=== PATIENT | male | born 1985 | race American Indian/Alaskan Native ===

== ENCOUNTER 2017-04-02 08:36 | Emergency (ER) | payer SELFPAY ==
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
--- NOTE | 2017-04-02 11:45 | XRay Report ---
Right leg 2 views: History: Right lower leg pain. Findings: No fracture, periosteal reaction or lytic lesion. No soft tissue calcification. Impression: Essentially negative right tibia-fibula.
[2017-04-02 12:10] VITALS: BP 99/60
== END 2017-04-02 12:10 | disposition home or self-care (01) ==
LOC: ED 08:36
DX: S80.11XA Contusion of right lower leg, initial encounter (principal); J45.909 Unspecified asthma, uncomplicated; F12.10 Cannabis abuse, uncomplicated; F17.200 Nicotine dependence, unspecified, uncomplicated; X58.XXXA Exposure to other specified factors, initial encounter; Y93.9 Activity, unspecified; Y99.9 Unspecified external cause status; Y92.009 Unspecified place in unspecified non-institutional (private) residence as the place of occurrence of the external cause
CPT/HCPCS: 99282

== ENCOUNTER 2017-05-14 19:12 | Emergency (ER) | payer OTHER ==
[2017-05-14 19:24] VITALS: BP 104/40
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
[2017-05-14] MEDS: ULTRAM PO ONE (20:20)
== END 2017-05-14 20:40 | disposition home or self-care (01) ==
LOC: ED 19:12
DX: S76.012A Strain of muscle, fascia and tendon of left hip, initial encounter (principal); J45.909 Unspecified asthma, uncomplicated; F17.200 Nicotine dependence, unspecified, uncomplicated; F12.10 Cannabis abuse, uncomplicated; X50.0XXA Overexertion from strenuous movement or load, initial encounter; Y93.89 Activity, other specified; Y92.89 Other specified places as the place of occurrence of the external cause; Y99.0 Civilian activity done for income or pay
CPT/HCPCS: 99282

== ENCOUNTER 2017-08-11 09:22 | Emergency (ER) | payer OTHER ==
[2017-08-11] MEDS ORDERED: NORCO 5/325 PO ONE (13:39)
[2017-08-11] MEDS ORDERED: ZOFRAN ODT PO ONE (13:39)
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
[2017-08-11 15:18] VITALS: BP 118/72
== END 2017-08-11 15:18 | disposition home or self-care (01) ==
LOC: ED 09:22
DX: S09.90XA Unspecified injury of head, initial encounter (principal); M79.1 Myalgia; J45.909 Unspecified asthma, uncomplicated; F17.200 Nicotine dependence, unspecified, uncomplicated; V89.2XXA Person injured in unspecified motor-vehicle accident, traffic, initial encounter; Y93.89 Activity, other specified; Y92.89 Other specified places as the place of occurrence of the external cause; Y99.8 Other external cause status
CPT/HCPCS: 70450; 72125; 99284; Q0162

== ENCOUNTER 2019-01-20 17:04 | Emergency (ER) | payer SELFPAY ==
[2019-01-20 17:11] VITALS: BP 132/67
--- NOTE | 2019-01-20 17:21 | Emergency Department Report ---
Chief Complaint: Upper Respiratory Infection Stated Complaint: COLD - HPI History of Present Illness: 33 y/o male comes in for cold like symptoms times 2 days. No fever. .Admits to running nose and sneezing. - ROS Review of Systems: + cough + sneezing +running nose - fever - Exam Vital Signs: Vital Signs 01/20/19 17:10 Temperature 98.0 F Pulse Rate 50 L Respiratory 20 Rate Blood Pressure 132/67 O2 Sat by Pulse 99 Oximetry Physical Exam: A&O x 3 CTA bilateral, RRR NO edema Normal gait MSE screening note: Focused history and physical exam performed. Due to findings the following was ordered: Allergic rhinitis. Recommend zyrtec and mucinex. ED Disposition for MSE Disposition: Z MED SCREENING EXAM-LEFT Is pt being admited?: No Does the pt Need Aspirin: No Condition: Stable Additional Instructions: OTC Zyrtec 10mg daily and Mucinex as directed.
== END 2019-01-20 17:30 | disposition left against medical advice (07) ==
LOC: ED 17:04
DX: J00 Acute nasopharyngitis [common cold] (principal); Z53.21 Procedure and treatment not carried out due to patient leaving prior to being seen by health care provider

== ENCOUNTER 2019-05-31 20:32 | Emergency (ER) | payer OTHER ==
[2019-05-31 20:45] VITALS: BP 120/62
[2019-05-31] MEDS ORDERED: IBUPROFEN 800 MG TAB PO ONE (23:48)
[2019-05-31] MEDS ORDERED: AMOXICILLIN/K CLAV 875/125MG TAB PO ONE (23:48)
--- NOTE | 2019-05-31 23:53 | Emergency Department Report ---
ED ENT HPI - General Chief complaint: Earache Stated complaint: LT EAR PAIN Time Seen by Provider: 05/31/19 23:29 Source: patient Mode of arrival: Ambulatory Limitations: No Limitations - History of Present Illness Initial comments: pt is a 33 y/o aam who presents for left ear pain 5/10 aching x 3 days. There is no discharge , no fever , no chills, n/v, no dizziness, no tinnitis. symptoms are exacerbated by movement. MD complaint: ear pain Onset/Timin -: days(s) Location: L ear Severity: moderate Severity scale (0 -10): 5 Quality: aching Consistency: constant Improves with: none Worsens with: movement Associated Symptoms: denies: fever, sore throat, tinnitus, discharge from ear, rhinorrhea - Related Data Previous Rx's Medication Instructions Recorded Last Taken Type Acetaminophen/Codeine [Tylenol #3] 1 tab PO Q6H PRN #20 tab 02/27/15 Unknown Rx Ibuprofen [Motrin 600 MG tab] 600 mg PO Q8H PRN #50 tablet 02/27/15 Unknown Rx Sulfamethoxazole/Trimethoprim 1 each PO BID #20 tablet 02/27/15 Unknown Rx [Bactrim DS TAB] Ibuprofen [Motrin] 600 mg PO Q8H PRN #60 tablet 04/12/15 Unknown Rx Sulfamethoxazole/Trimethoprim 1 each PO BID #14 tablet 04/12/15 Unknown Rx [Bactrim DS TAB] traMADol [Ultram] 50 mg PO Q6HR PRN #14 tablet 04/12/15 Unknown Rx Cyclobenzaprine [Flexeril] 10 mg PO TID PRN #30 tablet 05/14/17 Unknown Rx Naproxen [Naprosyn] 500 mg PO BID PRN #30 tablet 05/14/17 Unknown Rx Cyclobenzaprine [Flexeril] 10 mg PO TID PRN #15 tablet 08/11/17 Unknown Rx Naproxen 500 mg PO BID PRN #30 tablet 08/11/17 Unknown Rx Amoxicillin/Potassium Clav 1 each PO BID 7 Days #14 tablet 05/31/19 Unknown Rx [Augmentin 875-125 Tablet] Ibuprofen [Motrin 800 MG tab] 800 mg PO Q8HR PRN #30 tablet 05/31/19 Unknown Rx Allergies Allergy/AdvReac Type Severity Reaction Status Date / Time No Known Allergies Allergy Verified 01/20/19 17:11 ED Dental HPI - General Chief complaint: Earache Stated complaint: LT EAR PAIN Time Seen by Provider: 05/31/19 23:29 Source: patient Mode of arrival: Ambulatory Limitations: No Limitations - Related Data Previous Rx's Medication Instructions Recorded Last Taken Type Acetaminophen/Codeine [Tylenol #3] 1 tab PO Q6H PRN #20 tab 02/27/15 Unknown Rx Ibuprofen [Motrin 600 MG tab] 600 mg PO Q8H PRN #50 tablet 02/27/15 Unknown Rx Sulfamethoxazole/Trimethoprim 1 each PO BID #20 tablet 02/27/15 Unknown Rx [Bactrim DS TAB] Ibuprofen [Motrin] 600 mg PO Q8H PRN #60 tablet 04/12/15 Unknown Rx Sulfamethoxazole/Trimethoprim 1 each PO BID #14 tablet 04/12/15 Unknown Rx [Bactrim DS TAB] traMADol [Ultram] 50 mg PO Q6HR PRN #14 tablet 04/12/15 Unknown Rx Cyclobenzaprine [Flexeril] 10 mg PO TID PRN #30 tablet 05/14/17 Unknown Rx Naproxen [Naprosyn] 500 mg PO BID PRN #30 tablet 05/14/17 Unknown Rx Cyclobenzaprine [Flexeril] 10 mg PO TID PRN #15 tablet 08/11/17 Unknown Rx Naproxen 500 mg PO BID PRN #30 tablet 08/11/17 Unknown Rx Amoxicillin/Potassium Clav 1 each PO BID 7 Days #14 tablet 05/31/19 Unknown Rx [Augmentin 875-125 Tablet] Ibuprofen [Motrin 800 MG tab] 800 mg PO Q8HR PRN #30 tablet 05/31/19 Unknown Rx Allergies Allergy/AdvReac Type Severity Reaction Status Date / Time No Known Allergies Allergy Verified 01/20/19 17:11 ED Review of Systems ROS: Stated complaint: LT EAR PAIN Other details as noted in HPI Constitutional: denies: chills, fever Eyes: denies: eye pain, eye discharge, vision change ENT: ear pain. denies: throat pain Respiratory: denies: cough, shortness of breath, wheezing Cardiovascular: denies: chest pain, palpitations Endocrine: no symptoms reported Gastrointestinal: denies: abdominal pain, nausea, diarrhea Genitourinary: denies: urgency, dysuria Musculoskeletal: denies: back pain, joint swelling, arthralgia Skin: denies: rash, lesions Neurological: denies: headache, weakness, paresthesias Psychiatric: denies: anxiety, depression Hematological/Lymphatic: denies: easy bleeding, easy bruising ED Past Medical Hx - Past Medical History Hx Asthma: Yes Additional medical history: enlarge heart - Surgical History Additional Surgical History: denies - Social History Smoking Status: Never Smoker - Medications Home Medications: Home Medications Medication Instructions Recorded Confirmed Last Taken Type Acetaminophen/Codeine [Tylenol #3] 1 tab PO Q6H PRN #20 tab 02/27/15 Unknown Rx Ibuprofen [Motrin 600 MG tab] 600 mg PO Q8H PRN #50 tablet 02/27/15 Unknown Rx Sulfamethoxazole/Trimethoprim 1 each PO BID #20 tablet 02/27/15 Unknown Rx [Bactrim DS TAB] Ibuprofen [Motrin] 600 mg PO Q8H PRN #60 tablet 04/12/15 Unknown Rx Sulfamethoxazole/Trimethoprim 1 each PO BID #14 tablet 04/12/15 Unknown Rx [Bactrim DS TAB] traMADol [Ultram] 50 mg PO Q6HR PRN #14 tablet 04/12/15 Unknown Rx Cyclobenzaprine [Flexeril] 10 mg PO TID PRN #30 tablet 05/14/17 Unknown Rx Naproxen [Naprosyn] 500 mg PO BID PRN #30 tablet 05/14/17 Unknown Rx Cyclobenzaprine [Flexeril] 10 mg PO TID PRN #15 tablet 08/11/17 Unknown Rx Naproxen 500 mg PO BID PRN #30 tablet 08/11/17 Unknown Rx Amoxicillin/Potassium Clav 1 each PO BID 7 Days #14 tablet 05/31/19 Unknown Rx [Augmentin 875-125 Tablet] Ibuprofen [Motrin 800 MG tab] 800 mg PO Q8HR PRN #30 tablet 05/31/19 Unknown Rx ED Physical Exam - General Limitations: No Limitations General appearance: alert, in no apparent distress - Head Head exam: Present: atraumatic, normocephalic - Eye Eye exam: Present: normal appearance, PERRL, EOMI Pupils: Present: normal accommodation - ENT ENT exam: Present: mucous membranes moist, normal external ear exam - Expanded ENT Exam Expanded Ear exam: Present: normal external inspection TM/Canal exam: Erythema: Left TM, Effusion: Left TM, Canal Tenderness: Left TM Throat exam: Positive: other (uvula midline no swelling no exudate no lesions no stridor ). Negative: tonsillar erythema, tonsillomegaly, tonsillar exudate, R peritonsillar mass, L peritonsillar mass - Neck Neck exam: Present: normal inspection, full ROM. Absent: tenderness, meningismus, lymphadenopathy, thyromegaly - Respiratory Respiratory exam: Present: normal lung sounds bilaterally. Absent: respiratory distress, wheezes, stridor, chest wall tenderness - Cardiovascular Cardiovascular Exam: Present: regular rate, normal rhythm, normal heart sounds. Absent: systolic murmur, diastolic murmur, rubs, gallop - GI/Abdominal GI/Abdominal exam: Present: soft, normal bowel sounds. Absent: distended, tenderness, bruit, hernia - Rectal Rectal exam: Present: deferred - Extremities Exam Extremities exam: Present: normal inspection, full ROM. Absent: tenderness - Back Exam Back exam: Present: normal inspection, full ROM. Absent: tenderness - Neurological Exam Neurological exam: Present: alert, oriented X3, CN II-XII intact, normal gait - Psychiatric Psychiatric exam: Present: normal affect, normal mood - Skin Skin exam: Present: warm, dry, intact, normal color. Absent: rash ED Course Vital Signs 05/31/19 20:44 Temperature 98.0 F Pulse Rate 69 Respiratory 18 Rate Blood Pressure 120/62 O2 Sat by Pulse 96 Oximetry ED Medical Decision Making - Medical Decision Making This is a a straight forward AOM, plan: augmentin, ibuprofen, follow up with pcp in 2-3 days, return to emergency if symptoms worsen. pt verbalized agreement and understanding of discharge plan. Critical care attestation.: If time is entered above; I have spent that time in minutes in the direct care of this critically ill patient, excluding procedure time. ED Disposition Clinical Impression: AOM (acute otitis media) Qualifiers: Otitis media type: serous Laterality: left Recurrence: recurrent Qualified Code(s): H65.05 - Acute serous otitis media, recurrent, left ear Disposition: TO HOME OR SELFCARE Is pt being admited?: No Does the pt Need Aspirin: No Condition: Stable Instructions: Otitis Media (ED) Prescriptions: Amoxicillin/Potassium Clav [Augmentin 875-125 Tablet] 1 each PO BID 7 Days #14 tablet Ibuprofen [Motrin 800 MG tab] 800 mg PO Q8HR PRN #30 tablet PRN Reason: pain fever Referrals: DAVON MACKEY MD [Primary Care Provider] - 3-5 Days Forms: Work/School Release Form(ED) Time of Disposition: 23:58
== END 2019-06-01 00:12 | disposition home or self-care (01) ==
LOC: ED 20:32
DX: H65.05 Acute serous otitis media, recurrent, left ear (principal); J45.909 Unspecified asthma, uncomplicated; Z79.899 Other long term (current) drug therapy; Z79.1 Long term (current) use of non-steroidal anti-inflammatories (NSAID)
CPT/HCPCS: 99282

== ENCOUNTER 2020-06-21 17:35 | Emergency (ER) | payer OTHER ==
[2020-06-21 18:06] VITALS: BP 116/61
--- NOTE | 2020-06-21 18:48 | Emergency Department Report ---
ED General Adult HPI - General Chief complaint: Extremity Problem,Nontraumatic Stated complaint: LT EAR PAIN/RT ARM PAIN Time Seen by Provider: 06/21/20 18:38 Source: patient Mode of arrival: Ambulatory Limitations: No Limitations - History of Present Illness Initial comments: Patient is a 34-year-old male presents emergency room with complaints of left ear pain that began 2 days ago. He states that the hearing on that side feels slightly muffled. He denies any ear drainage, fever, sick contacts, nausea, vomiting, diarrhea, sore throat, chest pain, shortness of breath, cough. Patient also presents emergency room with complaints of the right elbow pain that began a few days ago. He denies any fall or injury. He denies any numbness or weakness. No past medical history. No allergies to medications. - Related Data Previous Rx's Medication Instructions Recorded Last Taken Type Acetaminophen/Codeine [Tylenol #3] 1 tab PO Q6H PRN #20 tab 02/27/15 Unknown Rx Ibuprofen [Motrin 600 MG tab] 600 mg PO Q8H PRN #50 tablet 02/27/15 Unknown Rx Sulfamethoxazole/Trimethoprim 1 each PO BID #20 tablet 02/27/15 Unknown Rx [Bactrim DS TAB] Ibuprofen [Motrin] 600 mg PO Q8H PRN #60 tablet 04/12/15 Unknown Rx Sulfamethoxazole/Trimethoprim 1 each PO BID #14 tablet 04/12/15 Unknown Rx [Bactrim DS TAB] traMADoL [Ultram] 50 mg PO Q6HR PRN #14 tablet 04/12/15 Unknown Rx Cyclobenzaprine [Flexeril] 10 mg PO TID PRN #30 tablet 05/14/17 Unknown Rx Naproxen [Naprosyn] 500 mg PO BID PRN #30 tablet 05/14/17 Unknown Rx Cyclobenzaprine [Flexeril] 10 mg PO TID PRN #15 tablet 08/11/17 Unknown Rx Naproxen 500 mg PO BID PRN #30 tablet 08/11/17 Unknown Rx Amoxicillin/Potassium Clav 1 each PO BID 7 Days #14 tablet 05/31/19 Unknown Rx [Augmentin 875-125 Tablet] Ibuprofen [Motrin 800 MG tab] 800 mg PO Q8HR PRN #30 tablet 05/31/19 Unknown Rx Amoxicillin/Potassium Clav 1 each PO BID 10 Days #20 tablet 06/21/20 Unknown Rx [Augmentin 875-125 Tablet] Naproxen [EC-Naproxen] 500 mg PO BID PRN #14 tablet. 06/21/20 Unknown Rx Neomycin/Polymyxin B/Hydrocort 4 drops AD QID 7 Days #1 bottle 06/21/20 Unknown Rx [Utyyqpmy-Jiybdtbtq-Kl Ear Soln] Allergies Allergy/AdvReac Type Severity Reaction Status Date / Time No Known Allergies Allergy Verified 01/20/19 17:11 ED Review of Systems ROS: Stated complaint: LT EAR PAIN/RT ARM PAIN Other details as noted in HPI Comment: All other systems reviewed and negative ED Past Medical Hx - Past Medical History Previous Medical History?: Yes Hx Asthma: Yes Additional medical history: enlarge heart - Surgical History Additional Surgical History: denies - Social History Smoking Status: Never Smoker Substance Use Type: None - Medications Home Medications: Home Medications Medication Instructions Recorded Confirmed Last Taken Type Acetaminophen/Codeine [Tylenol #3] 1 tab PO Q6H PRN #20 tab 02/27/15 Unknown Rx Ibuprofen [Motrin 600 MG tab] 600 mg PO Q8H PRN #50 tablet 02/27/15 Unknown Rx Sulfamethoxazole/Trimethoprim 1 each PO BID #20 tablet 02/27/15 Unknown Rx [Bactrim DS TAB] Ibuprofen [Motrin] 600 mg PO Q8H PRN #60 tablet 04/12/15 Unknown Rx Sulfamethoxazole/Trimethoprim 1 each PO BID #14 tablet 04/12/15 Unknown Rx [Bactrim DS TAB] traMADoL [Ultram] 50 mg PO Q6HR PRN #14 tablet 04/12/15 Unknown Rx Cyclobenzaprine [Flexeril] 10 mg PO TID PRN #30 tablet 05/14/17 Unknown Rx Naproxen [Naprosyn] 500 mg PO BID PRN #30 tablet 05/14/17 Unknown Rx Cyclobenzaprine [Flexeril] 10 mg PO TID PRN #15 tablet 08/11/17 Unknown Rx Naproxen 500 mg PO BID PRN #30 tablet 08/11/17 Unknown Rx Amoxicillin/Potassium Clav 1 each PO BID 7 Days #14 tablet 05/31/19 Unknown Rx [Augmentin 875-125 Tablet] Ibuprofen [Motrin 800 MG tab] 800 mg PO Q8HR PRN #30 tablet 05/31/19 Unknown Rx Amoxicillin/Potassium Clav 1 each PO BID 10 Days #20 tablet 06/21/20 Unknown Rx [Augmentin 875-125 Tablet] Naproxen [EC-Naproxen] 500 mg PO BID PRN #14 tablet. 06/21/20 Unknown Rx Neomycin/Polymyxin B/Hydrocort 4 drops AD QID 7 Days #1 bottle 06/21/20 Unknown Rx [Twggxots-Tohygfbxs-Uk Ear Soln] ED Physical Exam - General Limitations: No Limitations General appearance: alert, in no apparent distress - Head Head exam: Present: atraumatic, normocephalic - Eye Eye exam: Present: normal appearance - ENT ENT exam: Present: normal orophraynx, mucous membranes moist, other (right TM and canal is normal, left TM is erythematous with small amount of purulence behind the TM, left ear canal is erythematous with scaling, no drainage) - Respiratory Respiratory exam: Present: normal lung sounds bilaterally. Absent: respiratory distress, wheezes, rales, rhonchi, stridor, chest wall tenderness, accessory muscle use, decreased breath sounds, prolonged expiratory - Cardiovascular Cardiovascular Exam: Present: regular rate, normal rhythm, normal heart sounds. Absent: systolic murmur, diastolic murmur, rubs, gallop - Extremities Exam Extremities exam: Present: other (mild right lateral epicondyle ttp, no deformity, no ecchymosis, no edema, FROM of the RUE, neurovascularly intact) - Neurological Exam Neurological exam: Present: alert, oriented X3 - Psychiatric Psychiatric exam: Present: normal affect, normal mood - Skin Skin exam: Present: warm, dry, intact ED Course Vital Signs 06/21/20 18:04 Temperature 98.4 F Pulse Rate 65 Respiratory 18 Rate Blood Pressure 116/61 O2 Sat by Pulse 99 Oximetry ED Medical Decision Making - Medical Decision Making Patient is a 34-year-old male presents emergency room with complaints of left ea r pain that began 2 days ago. He states that the hearing on that side feels slightly muffled. He denies any ear drainage, fever, sick contacts, nausea, vomiting, diarrhea, sore throat, chest pain, shortness of breath, cough. Patient also presents emergency room with complaints of the right elbow pain that began a few days ago. He denies any fall or injury. He denies any numbness or weakness. No past medical history. No allergies to medications. vitals are normal. on exam: right TM and canal is normal, left TM is erythematous with small amount of purulence behind the TM, left ear canal is erythematous with scaling, no drainage. Patient given prescription for Augmentin, naproxen, antibiotic eardrops. Examination appears consistent with otitis media and otitis externa. Patient also appears to have medial epicondylitis, no signs of acute traumatic fracture or dislocation, he has full range of motion, no signs of infection. Advised patient Please use medication as prescribed. Follow-up with your primary care doctor. Follow-up with orthopedic doctor. Return to emergency room for any new or worsening symptoms. Critical care attestation.: If time is entered above; I have spent that time in minutes in the direct care of this critically ill patient, excluding procedure time. ED Disposition Clinical Impression: Otitis media Qualifiers: Otitis media type: suppurative Chronicity: acute Laterality: left Recurrence: non-recurrent Spontaneous tympanic membrane rupture: without spontaneous rupture Qualified Code(s): H66.002 - Acute suppurative otitis media without spontaneous rupture of ear drum, left ear Otitis externa Qualifiers: Otitis externa type: unspecified type Chronicity: acute Laterality: left Qualified Code(s): H60.502 - Unspecified acute noninfective otitis externa, left ear Lateral epicondylitis of elbow Qualifiers: Laterality: right Qualified Code(s): M77.11 - Lateral epicondylitis, right elbow Disposition: DC-01 TO HOME OR SELFCARE Is pt being admited?: No Does the pt Need Aspirin: No Condition: Stable Instructions: Otitis Externa, [id number], Tennis Elbow, [id number], Otitis Media, Adult, [id number] Additional Instructions: Please use medication as prescribed. Follow-up with your primary care doctor. Follow-up with orthopedic doctor. Return to emergency room for any new or worsening symptoms. Prescriptions: Amoxicillin/Potassium Clav [Augmentin 875-125 Tablet] 1 each PO BID 10 Days #20 tablet Naproxen [EC-Naproxen] 500 mg PO BID PRN #14 tablet. PRN Reason: pain Neomycin/Polymyxin B/Hydrocort [Qewqxbuc-Paqxlrzmn-Qe Ear Soln] 4 drops AD QID 7 Days #1 bottle Referrals: [facility] [Provider Group] - 2-3 Days CARBUCCIA,ROZINA, MD [Staff Physician] - 2-3 Days ANA HANKS MD [Staff Physician] - 2-3 Days [facility] [Provider Group] - 2-3 Days Forms: Work/School Release Form(ED) Time of Disposition: 18:49 Print Language: CHILEAN
== END 2020-06-21 19:29 | disposition home or self-care (01) ==
LOC: ED 17:35
DX: M77.11 Lateral epicondylitis, right elbow (principal); H66.92 Otitis media, unspecified, left ear; H60.92 Unspecified otitis externa, left ear; J45.909 Unspecified asthma, uncomplicated; Z79.1 Long term (current) use of non-steroidal anti-inflammatories (NSAID); Z79.899 Other long term (current) drug therapy
CPT/HCPCS: 99281